=== PATIENT | male | born 1985 | race Caucasian/White ===

== ENCOUNTER → 2023-12-02 | Outpatient (CLI) | payer OTHER, SELFPAY ==
[2023-12-02 14:23] LABS: Absolute Lymphocyte Count 2.17 X10^3/uL (0.83-4.51); Absolute Neutrophil Count 3.5 X10^3/uL (2.0-7.7); Basophil# 0.04 X10^3/uL; Basophil% 0.6 % (0-1); Eosinophil# 0.03 X10^3/uL; Eosinophils% 0.5 % (0-5); Hematocrit 43.9 % (40-54); Hemoglobin 15.4 g/dL (13.0-16.5); Lymphocyte # 2.17 X10^3/ul (0.83-4.51); Lymphocyte % 34.6 % (19-41); Mean Corp Hgb Conc 35.1 g/dL (32-36); Mean Corpuscular Hgb 30.3 pg (27.0-32.0); Mean Corpuscular Volume 86.2 fL (80-94); Mean Platelet Vol. 9.4 fl (6.2-12.0); Monocyte# 0.47 X10^3/uL; Monocyte% 7.5 % (0-10); NRBC Flagged by Analyzer 0 % (0-5); Neutrophil # 3.53 X10^3/uL (2.7-7.7); Neutrophil % 56.3 % (47-70); Platelet Count 250 K/mm3 (150-450); RBC Distribution Width CV 12.4 % (11.6-14.6); Red Blood Count 5.09 M/mm3 (4.6-6.2); White Blood Count 6.3 K/mm3 (4.4-11.0)
[2023-12-02 14:57] LABS: AST(SGOT) 20 U/L (15-37); Alanine Aminotransfer ALT/SGPT 27 U/L (16-61); Alkaline Phosphatase 59 U/L (45-117); Anion Gap 3 (5-15); BUN 30 mg/dL (7-18); BUN/Creat Ratio 23.1 RATIO (10-20); Bilirubin, Direct 0.12 mg/dL (0.00-0.30); Calcium,Total 9.2 mg/dL (8.5-10.1); Chloride 105 mmol/L (98-107); Cholesterol 148 mg/dL (200); EST Glomerular Filtration Rate 65 mL/min (>60); Est Glom Filt Rate - Afr Amer 78 mL/min (>60); Globulin 3.4 g/dL (2.2-4.2); Glucose 94 mg/dL (74-106); High Density Lipoprotein 48 mg/dL; Magnesium 2.1 mg/dL (1.6-2.6); Potassium 4.6 mmol/L (3.5-5.1); Protein, Total 7.4 g/dL (6.4-8.2); Sodium Level 136 mmol/L (136-145); Triglycerides 81 mg/dL; Very Low Density Lipoprotein 16 mg/dL (5-40)
== END | disposition home or self-care (01) ==
PROVIDERS: Referring Provider Internal Medicine Cardiovascular Disease; Visit Provider Internal Medicine Cardiovascular Disease
DX: I49.3 Ventricular premature depolarization (principal)
CPT/HCPCS: 36415; 80048; 80061; 80076; 83735; 84443; 85025

== ENCOUNTER → 2023-12-11 | Outpatient (CLI) | payer OTHER, SELFPAY ==
--- NOTE | 2023-12-11 06:43 | ECHOD_ITS ---
Reason For Study: VENTRICULAR PREMATURE DEPOLARIZTION Procedure This was a 2D Doppler, Color Flow transthoracic echocardiogram. Exam performed in department. Left Ventricle Normal LV size. Left ventricular systolic function is normal. The left ventricular ejection fraction is 55 %. Normal diastology for age. No regional wall motion abnormalities noted. Right Ventricle Normal RV size. Normal systolic function. Atria Normal left atrium. Normal right atrium. Mitral Valve Normal mitral valve. Tricuspid Valve Normal tricuspid valve. Mild (1+) tricuspid valve insufficiency. Pulmonary artery systolic pressure is 24 mmHg. Aortic Valve Trisinus/trileaflet aortic valve. Pulmonic Valve Normal pulmonic valve. Great Vessels Normal aortic root. The pulmonary artery is normal size. Normal inferior vena cava. Pericardium/Pleural No pericardial effusion. MMode/2D Measurements & Calculations LVIDd: 5.3 cm IVSd: 0.83 cm Ao root diam: 3.4 cm LVIDs: 3.3 cm LVPWd: 0.83 cm RVDd: 3.3 cm FS: 37.4 % LAV(MOD-bp): 82.7 ml LVAd ap4: 34.9 cm2 LVAd ap2: 35.3 cm2 LAV(MOD-bp) Indexed: 36.2 ml/m2 LVLd ap4: 8.3 cm LVLd ap2: 8.1 cm LAV(MOD-sp2): 89.0 ml EDV(MOD-sp4): 123.2 ml EDV(MOD-sp2): 123.9 ml LAV(MOD-sp4): 59.2 ml EDV(sp4-el): 124.3 ml EDV(sp2-el): 131.0 ml LVAs ap4: 20.5 cm2 LVAs ap2: 20.8 cm2 LVLs ap4: 6.6 cm LVLs ap2: 6.8 cm ESV(MOD-sp4): 54.4 ml ESV(MOD-sp2): 53.9 ml ESV(sp4-el): 53.7 ml ESV(sp2-el): 54.0 ml EF(MOD-sp4): 55.8 % EF(MOD-sp2): 56.5 % EF(sp4-el): 56.8 % SV(MOD-sp4): 68.7 ml SV(MOD-sp2): 70.0 ml SV(sp4-el): 70.6 ml LA dimension(2D): 3.9 cm LA A4 area: 18.5 cm2 RA A4 area: 17.5 cm2 TAPSE: 2.5 cm Time Measurements MV dec time: 0.31 sec Doppler Measurements & Calculations MV E max jhon: 56.2 cm/sec Lat Peak E' Jhon: 19.0 cm/sec Med Peak E' Jhon: 14.6 cm/sec MV A max jhon: 33.5 cm/sec E/E' lat: 3.0 E/E' med: 3.8 MV E/A: 1.7 MV V2 max: 66.3 cm/sec MV P1/2t max jhon: 66.8 cm/sec Ao V2 max: 116.7 cm/sec MV max P.8 mmHg MV P1/2t: 86.7 msec Ao max P.4 mmHg MV V2 mean: 32.4 cm/sec MV dec slope: 225.7 cm/sec2 Ao V2 mean: 81.8 cm/sec MV mean P.51 mmHg Ao mean P.0 mmHg MV V2 VTI: 20.1 cm MVA(P1/2t): 2.5 cm2 Ao V2 VTI: 28.3 cm AV (velocity ratio): 0.74 LV V1 max: 93.7 cm/sec MR max jhon: 540.7 cm/sec PA V2 max: 79.3 cm/sec LV V1 max P.5 mmHg MR max P.0 mmHg PA V2 mean: 55.4 cm/sec LV V1 mean P.8 mmHg MR mean jhon: 448.4 cm/sec LV V1 mean: 64.0 cm/sec MR mean P.5 mmHg LV V1 VTI: 21.1 cm MR VTI: 201.4 cm TR max jhon: 228.3 cm/sec TR max P.9 mmHg ECHO/Echo Complete Interpretation Summary Normal LV size. Left ventricular systolic function is normal. The left ventricular ejection fraction is 55 %. Pulmonary artery systolic pressure is 24 mmHg. Structurally normal valves. Ordering Physician: Feliz Adams Referring Physician: NO PCP Performed By: Lurdes Blood, YVETTE, RVT
== END | disposition home or self-care (01) ==
PROVIDERS: Referring Provider Internal Medicine Cardiovascular Disease; Visit Provider Internal Medicine Cardiovascular Disease
DX: I49.3 Ventricular premature depolarization (principal)
CPT/HCPCS: 93225; 93226; 93306